=== PATIENT | male | born 1940 | race Caucasian/White ===

== ENCOUNTER → 2017-04-12 | Day surgery (SDC) | payer MEDICARE ==
[~2017-04-12] MED LIST: ALLO300 PO; BUPIVACAINE HCL PF 0.75% 30 ML VIAL ONE; EPINEPHrine HCL (1:1000) 30 MG/30 ML VIAL ONE; GLIP5 PO; GLUCTAB PO; GLUCTAB47 PO; LACTATED RINGER'S 1000 ML INJ 1,000 ML ONE; LIDOCAINE 1.5%/EPINEPHrine 1:200,000 PF SOLN 30 ML AMP ONE; MIDAZOLAM HCL 5 MG/ML VIAL (1 ML) ONE; OMEG1CAP53 PO; PROPOFOL 200 MG/20 ML AMP IV ONE; TAB-TAB PO; TELM40 PO; VASO10TA8 PO; VITA400C70 PO; VITA500T10 PO; ZOCO40TA PO; ceFAZolin 2 GM PREMIX 50 ML ONE
--- NOTE | 2017-04-14 00:02 | MP ---
cc: ELIZABETH BRITO M.D. DATE OF SURGERY 04/12/2017 PREOPERATIVE DIAGNOSIS 1. Right shoulder large full-thickness rotator cuff tear. 2. Right shoulder impingement syndrome. POSTOPERATIVE DIAGNOSIS 1. Right shoulder large full-thickness rotator cuff tear involving the entire supraspinatus and the majority of the infraspinous with a [id number] split on the posterior aspect inferior infraspinatus making this a reverse L configuration tear. 2. Biceps tendon significant partial tear and anterior subluxation. PROCEDURE 1. Right shoulder arthroscopic rotator cuff repair using [employer] composite suture anchor. 2. Right shoulder arthroscopic biceps tenodesis. 3. Right shoulder arthroscopic subacromial decompression. ANESTHESIA Interscalene block and general. SURGEON Elizabeth Brito MD OVER THE [employer] TARGETING SUPERVISOR SURGEON GILBERT Barcenas ESTIMATED BLOOD LOSS Minimum. COMPLICATIONS None known. INDICATION Anthony Menchaca is a 76-year-old male with persistent right shoulder pain despite conservative management. He now presents for arthroscopic surgery. Risks, benefits have thoroughly been discussed and a detail informed consent has been obtained. Options of treatment thoroughly discussed. The advertising assistant manager Berry Smith is an advanced registered nurse practitioner. He specializes in orthopedic surgery. His skill set was medically necessary for the performance of the operation. PROCEDURE IN DETAIL The patient brought to the operating room was placed under general anesthetic. He had been given interscalene block in the preop holding area, was turned to the lateral decubitus position, right shoulder up. The right shoulder is prepped, draped in usual sterile fashion. IV antibiotics were given. Time-out was completed. We used a three portal technique about the shoulder, posterior, laterally and anteriorly. The cannula was placed with a blunt trocar posteriorly into the posterior portal and then the shoulder insufflated with saline. The articular surface of the humeral head and glenoid looked good. The inferior and posterior labrum looked good. Superiorly there was fraying about the superior labrum, the biceps tendon and the anterior labrum. Looking upward there is a very large rotator cuff tear. We came in through the lateral portal and shaved and debrided the superior labrum, obtained hemostasis and assess the biceps tendon, debrided unstable fibers and identified that this was greater than 50% the depth of the biceps tendon and then looking out laterally we saw the biceps tendon was subluxating out medially. We proceeded to do a biceps tenodesis, placed an intra-articular whipstitch and then released the biceps from the superior labrum and then used the specialized equipment to fixate it and by interference screw fixation socket at the superior aspect of the bicipital groove. The suture was then tied off over the screw, then we used these sutures for the most anteriorly dog ear stitch to later go to the lateral anchor. We then proceeded to release the capsule superiorly to mobilize the cuff and then came out of the shoulder joint into the subacromial space, performed bursectomy, identified the pattern of the tear which was a reverse L configuration. This was amenable to a speed bridge technique with bio composite sutures. We placed our anchors about a centimeter and a half apart and then posteriorly we did a [id number] lhri-ky-nizm stitch and with the posterior anchor we used the internal suture to do another kwkj-ky-wplx stitch here. Additionally, we used a free stitch posteriorly for another posterior support to the lateral anchor and an additional dog ear suture was placed for the anterior lateral anchor. We did a typical crisscross speed bridge technique. We placed our posterior anchor in first, took out all the slack and pulled the prepared rotator cuff tissue down to prepared bleeding bone. It should be also noted that we identified the anterior acromial spur and performed anterior acromionectomy and a follow-up photograph was taken to show before and after on the acromion. The arthroscopic hemostasis was very good. The equipment was removed. We closed with absorbable sutures. Steri-Strips applied. Sterile dressing applied. The patient was awoken, returned to recovery room in stable condition. MD ZAINA Banerjee/ALISHA /12:55 PM /11:39 PM
== END | disposition home or self-care (01) ==
LOC: ESDC 07:42
PROVIDERS: ATTEND Orthopaedic Surgery Sports Medicine
DX: M75.121 Complete rotator cuff tear or rupture of right shoulder, not specified as traumatic (principal); M75.41 Impingement syndrome of right shoulder; Z01.810 Encounter for preprocedural cardiovascular examination
CPT/HCPCS: 01630; 01716; 01991; 29826; 29827; 29828; 64417; 93005; C1713; J0171; J0690; J2250; J7120